=== PATIENT | female | born 1965 | race Caucasian/White ===

== ENCOUNTER 2024-01-28 11:47 | Outpatient (CLI) | payer MEDICAID, SELFPAY ==
--- NOTE | 2024-01-28 11:00 | DI.RAD_ITS ---
Exam(s) XR KNEE RT 3V AP,LAT,SARIAH XR ANKLE RT COMPLETE XR TIB/FIB RT EXAM: XR TIB/FIB RT CLINICAL HISTORY: right hammond pain, fall,m79.604. TECHNIQUE: 2D digital imaging was performed. Two views of the tibia and fibula. Three views of the knee and ankle. COMPARISON: CR XR ANKLE RT COMPLETE from 01/28/2024 CR XR KNEE RT 3V AP,LAT,SARIAH from 01/28/2024 FINDINGS: BONES: No acute fracture is present. No bony destructive lesion is seen. The knee and ankle joints ar e unremarkable. Minimal degenerative changes. Heel spurs. Ossicle adjacent to tip medial malleolus . SOFT TISSUE: Normal. IMPRESSION: No acute abnormality involving right tibia and fibula, knee and ankle. DATA REPOSITORY: RADIATION DOSE DELIVERED:
--- OUTSIDE RECORDS SUMMARY | 2024-01-28 11:50 | XMS_ITS | Continuity of Care Document ---
Author Organization [facility] Address [address] [place] [id number] Care Team Providers Care Receiver Name Role Phone Vonda Stewart Primary Care Physician Encounter [facility] [id number] Date(s): 10/28/23 - 10/28/[address] [id number] Encounter Diagnosis Migraine(Discharge Diagnosis) - 10/28/23 Discharge Disposition: Home or Self Care Attending Physician: Tom Gant MD Admitting Physician: Tom Gant MD Referring Physician: Vonda Stewart Allergies, Adverse Reactions, Alerts No Known Medication Allergies Medications ketorolac 10 mg oral tablet 10 mg = 1 tab, Oral, QID, PRN as needed for pain, not to exceed 40 mg/day and 5 days duration for all dose forms, # 20 tab, 0 Refill(s), 11/07/23 12:20:00 PM CDT, Pharmacy: [id number] Start Date: 10/28/23 Stop Date: 11/07/23 Status: Ordered Reglan 10 mg oral tablet 10 mg = 1 tab, Oral, QID, X 7 days, # 28 tab, 0 Refill(s), 11/04/23 12:20:00 PM CDT, Pharmacy: [id number] Start Date: 10/28/23 Stop Date: 11/04/23 Status: Ordered Problem List No Known Problems Vital Signs Most recent to oldest [Reference Range]: 1 Temperature Oral [35.8-37.3 Deg C] 37.0 Deg C (10/28/23 12:56 PM) Peripheral Pulse Rate [60-100 bpm] 85 bp m (10/28/23 12:56 PM) Respiratory Rate [12-24 br/min] 16 br/mi n (10/28/23 12:56 PM) Blood Pressure [90-140/60-90 mmHg] 171/1 06mmHg *HI* (10/28/23 12:56 PM) Social History Social History Type Response Tobacco Never tobacco user T obacco Use:. Sex Female Hospital Discharge Instructions Patient Education 10/28/2023 12:16:38 Migraine Headache Migraine Headache A migraine headache is an intense, throbbing pain on one side or both sides of the head. Migraine headaches may also cause other symptoms, such as nausea, vomiting, and sensitivity to light and noise. A migraine headache can last from 4 hours to 3 days. Talk with your doctor about what things may bring on (trigger) your migraine headaches. What are the causes? The exact cause of this condition is not known. However, a migraine may be caused when nerves in the brain become irritated and release chemicals that cause inflammation of blood vessels. This inflammation causes pain. This condition may be triggered or caused by: ??? Drinking alcohol. ??? Smoking. ??? Taking medicines, such as: ??? Medicine used to treat chest pain (nitroglycerin). ??? control pills. ??? Estrogen. ??? Certain blood pressure medicines. ??? Eating or drinking products that contain nitrates, glutamate, aspartame, or tyramine. Aged cheeses, chocolate, or caffeine may also be triggers. ??? Doing physical activity. Other things that may trigger a migraine headache include: ??? Menstruation. ??? . ??? Hunger. ??? Stress. ??? Lack of sleep or too much sleep. ??? Weather changes. ??? Fatigue. What increases the risk? The following factors may make you more likely to experience migraine headaches: ??? Being a certain age. This condition is more common in people who are 25???55 years old. ??? Being female. ??? Having a family history of migraine headaches. ??? Being . ??? Having a mental health condition, such as depression or anxiety. ??? Being obese. What are the signs or symptoms? The main symptom of this condition is pulsating or throbbing pain. This pain may: ??? Happen in any area of the head, such as on one side or both sides. ??? Interfere with daily activities. ??? Get worse with physical activity. ??? Get worse with exposure to bright lights or loud noises. Other symptoms may include: ??? Nausea. ??? Vomiting. ??? Dizziness. ??? General sensitivity to bright lights, loud noises, or smells. Before you get a migraine headache, you may get warning signs (an aura). An aura may include: ??? Seeing flashing lights or having blind spots. ??? Seeing bright spots, halos, or zigzag lines. ??? Having tunnel vision or blurred vision. ??? Having numbness or a tingling feeling. ??? Having trouble talking. ??? Having muscle weakness. Some people have symptoms after a migraine headache (postdromal phase), such as: ??? Feeling tired. ??? Difficulty concentrating. How is this diagnosed? A migraine headache can be diagnosed based on: ??? Your symptoms. ??? A physical exam. ??? Tests, such as: ??? CT scan or an MRI of the head. These imaging tests can help rule out other causes of headaches. ??? Taking fluid from the spine (lumbar puncture) and analyzing it (cerebrospinal fluid analysis, or CSF analysis). How is this treated? This condition may be treated with medicines that: ??? Relieve pain. ??? Relieve nausea. ??? Prevent migraine headaches. Treatment for this condition may also include: ??? Acupuncture. ??? Lifestyle changes like avoiding foods that trigger migraine headaches. ??? Biofeedback. ??? Cognitive behavioral therapy. Follow these instructions at home: Medicines ??? Take vcgd-lps-wxffioc and prescription medicines only as told by your health care provider. ??? Ask your health care provider if the medicine prescribed to you: ??? Requires you to avoid driving or using heavy machinery. ??? Can cause constipation. You may need to take these actions to prevent or treat constipation: ??? Drink enough fluid to keep your urine pale yellow. ??? Take fhjw-urn-wjuzpsx or prescription medicines. ??? Eat foods that are high in fiber, such as beans, whole grains, and fresh fruits and vegetables. ??? Limit foods that are high in fat and processed sugars, such as fried or sweet foods. Lifestyle ??? Do not drink alcohol. ??? Do not use any products that contain nicotine or tobacco, such as cigarettes, e-cigarettes, andchewing tobacco. If you need help quitting, ask your health care provider. ??? Get at least 8 hours of sleep every night. ??? Find ways to manage stress, such as meditation, deep breathing, or yoga. General instructions ??? Keep a journal to find out what may trigger your migraine headaches. For example, write down: ??? What you eat and drink. ??? How much sleep you get. ??? Any change to your diet or medicines. ??? If you have a migraine headache: ??? Avoid things that make your symptoms worse, such as bright lights. ??? It may help to lie down in a dark, quiet room. ??? Do not drive or use heavy machinery. ??? Ask your health care provider what activities are safe for you while you are experiencing symptoms. ??? Keep all follow-up visits as told by your health care provider. This is important. Contact a health care provider if: ??? You develop symptoms that are different or more severe than your usual migraine headache symptoms. ??? You have more than 15 headache days in one month. Get help right away if: ??? Your migraine headache becomes severe. ??? Your migraine headache lasts longer than 72 hours. ??? You have a fever. ??? You have a stiff neck. ??? You have vision loss. ??? Your muscles feel weak or like you cannot control them. ??? You start to lose your balance often. ??? You have trouble walking. ??? You faint. ??? You have a seizure. Summary ??? A migraine headache is an intense, throbbing pain on one side or both sides of the head. Migraines may also cause other symptoms, such as nausea, vomiting, and sensitivity to light and noise. ??? This condition may be treated with medicines and lifestyle changes. You may also need to avoid certain things that trigger a migraine headache. ??? Keep a journal to find out what may trigger your migraine headaches. ??? Contact your health care provider if you have more than 15 headache days in a month or you develop symptoms that are different or more severe than your usual migraine headache symptoms. This information is not intended to replace advice given to you by your health care provider. Make sure you discuss any questions you have with your health care provider. Document Revised: 10/08/2022 Document Reviewed: 06/08/2019 [employer] Patient Education ?? 2022 [employer] Follow Up Care 10/28/2023 12:50:02 With:Follow up with Specialist Address:Unknown When:1 to 2 weeks Physician Emergency department Note * Tom Gant MD: PERFORM Event Display: ED Note Physician Authored Date: [id number] VALENCIA ISRAEL :1965 Age:57 years Sex:Female Visit Date:10/28/2023 Primary Care Physician: Vonda Stewart Basic Information ??No qualifying data available.?? Chief Complaint Pt reports migraine x 3 days. States she sees the headache clinic at [facility] for persistent daily headaches. History Of Present Illness: 57-year-old female??with a history of migraine headaches??currently followed by a headache clinic at [facility].?? She presents with a??typical migraine headache lasting for 3 days. ??She took her normal medication regimen but??did not??get relief. ??The headache has persisted despite??attempts at resting and??usual medications.?? She denies any atypical features of this headache. ??She has had imagingstudies in the past that have not shown anything??concerning??as the cause of the headaches.?? She denies fevers or chills. ??She denies a history of trauma Review of Systems: Positive for??migraine headache. ??Negative for fevers??or trauma Physical Exam Vitals & Measurements T:??37.0?C ??(Oral)?? HR:??85??(Peripheral)?? RR:??16?? BP:??171/106?? SpO2:??100%?? Physical examination reveals??pupils that are equal and reactive bilaterally. ??Extraocular muscle function is intact.?? The patient??has subjective numbness tingling in her hands which is typical??but no focal neurologic deficit Medical Decision Making: Labs: NA ?? Radiology: NA ?? Old medical records: ??old medical records pertinent to the current visit have been reviewed ?? ED course: See below ?? Medical decision making:??57-year-old female with a history of migraine headaches presents with a typical headache. ??She has been using her??usual medications without relief.?? I did give her a doseof ketorolac prednisone and??Reglan here and discharged her with a prescription for ketorolac and Re glan. ??She has an appointment in the headache clinic??in 2 weeks.?? She will use the medication provided rest??follow-up as directed and return for any concerns ?? Diagnosis:??Migraine headache Procedure No Qualifying Data Assessment/Plan 1.??Migraine??G43.909 Ordered: ketorolac 10 mg oral tablet, 10 mg = 1 tab, Oral, QID, PRN as needed for pain, not to exceed 40 mg/day and 5 days duration for all dose forms, # 20 tab, 0 Refill(s), 11/07/23 13:20:00 EDT, Pharmacy: [facility][id number] Reglan 10 mg oral tablet, 10 mg = 1 tab, Oral, QID, X 7 days, # 28 tab, 0 Refill(s), 11/04/23 13:20:00 EDT, Pharmacy: [id number] Discharge Patient, 10/28/23 13:20:00 EDT ?? Patient Education Migraine Headache Follow Up With When Contact Information Follow up with Specialist Within 1 to 2 weeks Additional Instructions: Medication Reconciliation New Prescription ketorolac (ketorolac 10 mg oral tablet)1 tab Oral (given by mouth) 4 times a day as needed as needed for pain. not to exceed 40 mg/day and 5 days duration for all dose forms. Refills: 0. ?? metoclopramide (Reglan 10 mg oral tablet)1 tab Oral (given by mouth) 4 times a day for 7 Days. Refills: 0. Problem List/Past Medical History Ongoing No chronic problems Historical No qualifying data Medication Administration Given ketorolac, 10 mg, Oral metoclopramide, 10 mg, Oral predniSONE, 40 mg, Oral Allergies No Known Medication Allergies Social History Electronic Cigarette/Vaping Electronic Cigarette Use: Never. Tobacco Never tobacco user Tobacco Use:. Diagnostic Results No qualifying data available. Electronically Signed on 10/28/2023 13:23 EDT Tom Gant MD Emergency department Discharge instructions * Tom Gant MD: PERFORM Event Display: ED Discharge Information Authored Date: [id number] VALENCIA ISRAEL :1965 Age:57 years Sex:Female Visit Date:10/28/2023 Primary Care Physician: Vonda Stewart Discharge Instructions We would like to thank you for allowing us to assist you with your healthcare needs. The following includes patient education materials and information regarding your injury/illness. Diagnosis from Today's Visit Migraine Discharge Vitals Temperature??(Oral) 98.6 ??F (37.0 ??C) Heart Rate??(Peripheral) 85 Respiratory Rate?? 16 Blood Pressure?? 171/106?? SpO2?? 100% Allergies No Known Medication Allergies What to Do Next You Need to Schedule the Following Appointments Follow Up with??Follow up with Specialist When:??Within 1 to 2 weeks You were treated today on an emergency basis; it may be simon to contact your primary care provider to notify them of your visit today. You may have been referred to your regular doctor or a specialist, please follow up as instructed. If your condition worsens or you can't get in to see the doctor, contact the Emergency Department. Medications What How Much When Why Instructions Next Dose New ketorolac (ketorolac 10 mg oral tablet) 1 tab Oral (given by mouth) 4 times a day as needed for as needed for pain Migraine not to exceed 40 mg/ day and 5 days duration for all dose forms ?? Pickup at [id number] New metoclopramide (Reglan 10 mg oral tablet) 1 tab Oral (given by mouth) 4 times a day Migraine Duration: 7 Days Pickup at [id number] Pharmacy Information [facility] #[id number]: [address], [place] [phone] [employer] Migraine Headache A migraine headache is an intense, throbbing pain on one side or both sides of the head. Migraine headaches may also cause other symptoms, such as nausea, vomiting, and sensitivity to light and noise. A migraine headache can last from 4 hours to 3 days. Talk with your doctor about what things may bring on (trigger) your migraine headaches. What are the causes? The exact cause of this condition is not known. However, a migraine may be caused when nerves in the brain become irritated and release chemicals that cause inflammation of blood vessels. This inflammation causes pain. This condition may be triggered or caused by: ? Drinking alcohol. ? Smoking. ? Taking medicines, such as: ? Medicine used to treat chest pain (nitroglycerin). ? control pills. ? Estrogen. ? Certain blood pressure medicines. ? Eating or drinking products that contain nitrates, glutamate, aspartame, or tyramine. Aged cheeses,chocolate, or caffeine may also be triggers. ? Doing physical activity. Other things that may trigger a migraine headache include: ? Menstruation. ? . ? Hunger. ? Stress. ? Lack of sleep or too much sleep. ? Weather changes. ? Fatigue. What increases the risk? The following factors may make you more likely to experience migraine headaches: ? Being a certain age. This condition is more common in people who are 25???55 years old. ? Being female. ? Having a family history of migraine headaches. ? Being . ? Having a mental health condition, such as depression or anxiety. ? Being obese. What are the signs or symptoms? The main symptom of this condition is pulsating or throbbing pain. This pain may: ? Happen in any area of the head, such as on one side or both sides. ? Interfere with daily activities. ? Get worse with physical activity. ? Get worse with exposure to bright lights or loud noises. Other symptoms may include: ? Nausea. ? Vomiting. ? Dizziness. ? General sensitivity to bright lights, loud noises, or smells. Before you get a migraine headache, you may get warning signs (an aura). An aura may include: ? Seeing flashing lights or having blind spots. ? Seeing bright spots, halos, or zigzag lines. ? Having tunnel vision or blurred vision. ? Having numbness or a tingling feeling. ? Having trouble talking. ? Having muscle weakness. Some people have symptoms after a migraine headache (postdromal phase), such as: ? Feeling tired. ? Difficulty concentrating. How is this diagnosed? A migraine headache can be diagnosed based on: ? Your symptoms. ? A physical exam. ? Tests, such as: ? CT scan or an MRI of the head. These imaging tests can help rule out other causes of headaches. ? Taking fluid from the spine (lumbar puncture) and analyzing it (cerebrospinal fluid analysis, or CSF analysis). How is this treated? This condition may be treated with medicines that: ? Relieve pain. ? Relieve nausea. ? Prevent migraine headaches. Treatment for this condition may also include: ? Acupuncture. ? Lifestyle changes like avoiding foods that trigger migraine headaches. ? Biofeedback. ? Cognitive behavioral therapy. Follow these instructions at home: Medicines ? Take ddge-lnm-tqoxgki and prescription medicines only as told by your health care provider. ? Ask your health care provider if the medicine prescribed to you: ? Requires you to avoid driving or using heavy machinery. ? Can cause constipation. You may need to take these actions to prevent or treat constipation: ? Drink enough fluid to keep your urine pale yellow. ? Take yiiw-uxb-nderevs or prescription medicines. ? Eat foods that are high in fiber, such as beans, whole grains, and fresh fruits and vegetables. ? Limit foods that are high in fat and processed sugars, such as fried or sweet foods. Lifestyle ? Do not drink alcohol. ? Do not use any products that contain nicotine or tobacco, such as cigarettes, e- cigarettes, and chewing tobacco. If you need help quitting, ask your health care provider. ? Get at least 8 hours of sleep every night. ? Find ways to manage stress, such as meditation, deep breathing, or yoga. General instructions ? Keep a journal to find out what may trigger your migraine headaches. For example, write down: ? What you eat and drink. ? How much sleep you get. ? Any change to your diet or medicines. ? If you have a migraine headache: ? Avoid things that make your symptoms worse, such as bright lights. ? It may help to lie down in a dark, quiet room. ? Do not drive or use heavy machinery. ? Ask your health care provider what activities are safe for you while you are experiencing symptoms. ? Keep all follow-up visits as told by your health care provider. This is important. Contact a health care provider if: ? You develop symptoms that are different or more severe than your usual migraine headache symptoms. ? You have more than 15 headache days in one month. Get help right away if: ? Your migraine headache becomes severe. ? Your migraine headache lasts longer than 72 hours. ? You have a fever. ? You have a stiff neck. ? You have vision loss. ? Your muscles feel weak or like you cannot control them. ? You start to lose your balance often. ? You have trouble walking. ? You faint. ? You have a seizure. Summary ? A migraine headache is an intense, throbbing pain on one side or both sides of the head. Migraines may also cause other symptoms, such as nausea, vomiting, and sensitivity to light and noise. ? This condition may be treated with medicines and lifestyle changes. You may also need to avoid certain things that trigger a migraine headache. ? Keep a journal to find out what may trigger your migraine headaches. ? Contact your health care provider if you have more than 15 headache days in a month or you develop symptoms that are different or more severe than your usual migraine headache symptoms. This information is not intended to replace advice given to you by your health care provider. Make sure you discuss any questions you have with your health care provider. Document Revised: 10/08/2022 Document Reviewed: 06/08/2019 [employer] Patient Education ?? 2022 [employer] Patient/Cleaner And Preparer Signature Patient Name:LINDY VALENCIA I have received this information and my questions have been answered. Patient/Cleaner And Preparer Name: Patient/Cleaner And Preparer Signature: Relationship to Patient: Witness Name/Signature: Date: Electronically Signed on 10/28/2023 13:21 EDT Tom Gant MD Patient Care team information Care Team Personnel Name: Stewart, Vonda Position: No Access Member Role: Primary Care Physician Care Team Related Persons Name: JUAN J ISRAEL
== END 2024-01-28 12:07 ==
LOC: DI 11:48
PROVIDERS: PCP Family Medicine; Visit Provider Physician Assistant
DX: M79.604 Pain in right leg (principal); M25.571 Pain in right ankle and joints of right foot; M25.561 Pain in right knee
CPT/HCPCS: 73562; 73590; 73610